=== PATIENT | female | born 1940 | race Caucasian/White ===

== ENCOUNTER → 2018-07-04 | Outpatient (CLI) | payer MEDICARE, OTHER ==
[~2018-07-04] MED LIST: ASPIR 8181 MG PO; CALCIUM PO; CENTRUM SILVER1 EAC4 PO; FLEXERIL PO; HYDROCODON-ACE1 EAC7 PO; L-LYSINE1000 M1 PO; NAPROSYN500 M1 PO; NORCO 5-325 TA1 EACH PO; NORFLEX100 MG PO; VITAMIN D32000 UNI1 PO
== END ==
LOC: M.RAD 14:01
DX: Z12.31 Encounter for screening mammogram for malignant neoplasm of breast (principal); M81.0 Age-related osteoporosis without current pathological fracture; M48.061 Spinal stenosis, lumbar region without neurogenic claudication; Z78.0 Asymptomatic menopausal state

== ENCOUNTER 2021-06-21 18:32 | Emergency (ER) | payer MEDICARE ==
[~2021-06-21] VITALS: Ht 160 cm; Wt 72.6 kg
[2021-06-21] MEDS ORDERED: CEPHALEXIN500 MG PO (20:41)
[2021-06-21 21:00] VITALS: BP 195/96
== END 2021-06-21 21:00 | disposition home or self-care (01) ==
LOC: M.ERS 18:32
DX: S01.81XA Laceration without foreign body of other part of head, initial encounter (principal); Z79.82 Long term (current) use of aspirin; Z79.899 Other long term (current) drug therapy; Z88.2 Allergy status to sulfonamides; W19.XXXA Unspecified fall, initial encounter; Y93.89 Activity, other specified; Y92.89 Other specified places as the place of occurrence of the external cause; Y99.8 Other external cause status